=== PATIENT | female | born 1960 ===

== ENCOUNTER 2020-07-22 07:47 | Emergency (ER) | payer OTHER ==
[~2020-07-22 07:47] MED LIST: ASPIR-LOW81 MG PO; CARAFATE1 GM/10 ML PO; LIPITOR TAB 2020 MG PO; MECLIZINE HCL25 MG PO; METOPROLOL TART50 MG PO; MYCOSTATIN POWD15 GM EXT; PLAVIX 75 MG TA75 MG PO; PROTONIX40 MG PO; ZANTAC150 MG PO
[2020-07-22 08:49] LABS: HEMOGLOBIN 12.7 gm/dl (12.3-15.3); RED BLOOD COUNT 4.11 M/UL (4.00-5.10)
[2020-07-22 09:17] LABS: BUN/CREATININE RATIO 16 (0-10)
[2020-07-22] MEDS ORDERED: BUSPIRONE HCL5 MG PO (12:46)
== END 2020-07-22 13:00 | disposition home or self-care (01) ==
LOC: ER1 07:47
PROVIDERS: Physician Assistant
DX: R07.89 Other chest pain (principal); R00.2 Palpitations; E11.9 Type 2 diabetes mellitus without complications; E78.5 Hyperlipidemia, unspecified; I25.2 Old myocardial infarction; K21.9 Gastro-esophageal reflux disease without esophagitis; Z90.49 Acquired absence of other specified parts of digestive tract; Z79.01 Long term (current) use of anticoagulants; Z79.02 Long term (current) use of antithrombotics/antiplatelets; Z79.899 Other long term (current) drug therapy; Z88.1 Allergy status to other antibiotic agents
CPT/HCPCS: 71045; 80053; 82550; 82553; 83735; 83874; 84439; 84443; 84484; 85025; 93005; 93242; 99285

== ENCOUNTER → 2020-08-03 | Outpatient (CLI) | payer OTHER ==
[~2020-08-03] MED LIST changes: +BUSPIRONE HCL5 MG PO
== END ==
LOC: HEART 5 14:57
DX: R00.2 Palpitations (principal)

== ENCOUNTER 2020-08-22 08:48 | Emergency (ER) | payer OTHER ==
[2020-08-22 10:00] LABS: HEMOGLOBIN 13.7 gm/dl (12.3-15.3); RED BLOOD COUNT 4.42 M/UL (4.00-5.10); WHITE BLOOD COUNT 4.1 K/UL (4.5-11.0)
[2020-08-22 10:32] LABS: BUN/CREATININE RATIO 18 (0-10)
== END 2020-08-22 13:40 | disposition home or self-care (01) ==
LOC: ER1 08:48
PROVIDERS: Family Medicine
DX: R07.9 Chest pain, unspecified (principal); R06.00 Dyspnea, unspecified; M54.6 Pain in thoracic spine; Z88.5 Allergy status to narcotic agent; Z79.82 Long term (current) use of aspirin; Z79.899 Other long term (current) drug therapy
CPT/HCPCS: 71045; 80053; 82550; 82553; 83874; 83880; 84484; 85025; 85379; 85610; 93005; 99284; Q9967

== ENCOUNTER → 2020-09-05 | Outpatient (CLI) | payer OTHER | LOC: HEART 5 14:08 | DX: I25.10 Atherosclerotic heart disease of native coronary artery without angina pectoris (principal); I10 Essential (primary) hypertension | CPT/HCPCS: 93306 ==